=== PATIENT | male | born 1970 | race Caucasian/White ===

== ENCOUNTER 2017-08-20 17:27 | Emergency (ER) | payer BC, OTHER ==
[~2017-08-20] VITALS: Ht 175.3 cm; Wt 74.8 kg
[~2017-08-20 17:27] MED LIST: PER PO; SEPTRA DS PO
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
[2017-08-20] MEDS ORDERED: IBUPROFEN 600 MG TAB PO ONE (18:25)
[2017-08-20 18:48] VITALS: BP 143/82
[2017-08-20] MEDS ORDERED: OXYC-865 PO (18:48)
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
== END 2017-08-20 18:54 | disposition home or self-care (01) ==
LOC: ER 18:10
DX: S82.831A Other fracture of upper and lower end of right fibula, initial encounter for closed fracture (principal); Y93.29 Activity, other involving ice and snow
CPT/HCPCS: 99283

== ENCOUNTER → 2018-05-24 | Outpatient (CLI) | payer BC, OTHER ==
[~2018-05-24] MED LIST changes: +OXYC-865 PO
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
== END ==
LOC: RAD 09:21
PROVIDERS: ATTEND Urology
DX: N20.0 Calculus of kidney (principal)
CPT/HCPCS: 74018

== ENCOUNTER → 2018-12-27 | Outpatient (CLI) | payer BC | LOC: LAB 10:26 | PROVIDERS: ATTEND Urology | DX: C61 Malignant neoplasm of prostate (principal) | CPT/HCPCS: 36415; 84154 ==